=== PATIENT | male | born 1960 | race Two or more races ===

== ENCOUNTER 2021-05-27 08:50 | Emergency (ER) | payer MEDICAID ==
[~2021-05-27] VITALS: Ht 167.6 cm; Wt 77.1 kg
[2021-05-27] MEDS ORDERED: MECLIZINE HCL 25 MG TAB PO ONE (09:30)
[2021-05-27 09:41] LABS: Basophils # (auto) 0.1 10 ^3/uL (0-0.2); Basophils % (auto) 2.5 % (0.0-2.0); Eosinophils # (auto) 0.1 10 ^3/uL (0-0.8); Hematocrit 43.4 % (41.0-53.0); Hemoglobin 14.5 g/dL (13.5-17.5); Lymphocytes # (auto) 1.6 10 ^3/uL (0.4-5.4); Lymphocytes % (auto) 43.5 % (10.0-50.0); Mean Corpuscular Hemoglobin 30.9 pg (28.0-32.0); Mean Corpuscular Hgb Conc. 33.5 g/dL (32.0-36.0); Mean Corpuscular Volume 92.5 fL (80.0-100.0); Monocytes # (auto) 0.2 10 ^3/uL (0-1.3); Monocytes % (auto) 6.3 % (0.0-12.0); Neutrophils # (auto) 1.6 10 ^3/uL (1.6-8.6); Neutrophils % (auto) 45.7 % (37.0-80.0); Nucleated Red Blood Cells % 0.1 %; Red Blood Cells 4.69 10^6/uL (4.5-5.90); Red Cell Distribution Width 13.2 % (11.8-14.3); White Blood Cell 3.6 10^3/uL (4.4-10.8)
[2021-05-27 10:01] LABS: Albumin 3.9 g/dL (3.4-5.0); Calcium 8.6 mg/dL (8.5-10.1); Potassium 3.7 mmol/L (3.5-5.1)
[2021-05-27 10:07] LABS: BUN/Creatinine Ratio 19.2; Bilirubin, Total 1.2 mg/dL (0.2-1.0); Total Protein 7.6 g/dL (6.4-8.2)
[2021-05-27] MEDS ORDERED: MECL25CH38 PO (10:44)
[2021-05-27 11:30] LABS: Urine Bacteria NONE SEEN /hpf (None Seen); Urine Blood Negative /uL (Negative); Urine Specific Gravity 1.018 (1.001-1.035); Urine WBC <1 /hpf (0 - 3)
[2021-05-27 12:07] VITALS: BP 109/67
== END 2021-05-27 12:06 | disposition home or self-care (01) ==
LOC: ER 08:50
DX: R42 Dizziness and giddiness (principal); R11.2 Nausea with vomiting, unspecified; R51.9 Headache, unspecified; Z79.899 Other long term (current) drug therapy; Z20.822 Contact with and (suspected) exposure to COVID-19
CPT/HCPCS: 36415; 70450; 80053; 81001; 84484; 85025; 87426; 93005; 99285; J8597

== ENCOUNTER 2022-04-30 10:07 | Emergency (ER) | payer MEDICAID ==
[~2022-04-30] VITALS: Ht 167.6 cm; Wt 77.5 kg
[~2022-04-30 10:07] MED LIST: MECL25CH38 PO
[2022-04-30 10:15] VITALS: BP 138/85
[2022-04-30] MEDS ORDERED: METH750T22 PO ×2 (11:25→11:26)
[2022-04-30] MEDS ORDERED: MELO7.5T9 PO ×2 (11:25→11:26)
== END 2022-04-30 11:30 | disposition home or self-care (01) ==
LOC: ER 10:07
DX: S63.502A Unspecified sprain of left wrist, initial encounter (principal); S23.41XA Sprain of ribs, initial encounter; Z79.899 Other long term (current) drug therapy; X58.XXXA Exposure to other specified factors, initial encounter; Y93.89 Activity, other specified; Y92.89 Other specified places as the place of occurrence of the external cause; Y99.8 Other external cause status
CPT/HCPCS: 71046; 73110

== ENCOUNTER 2023-06-07 12:10 | Emergency (ER) | payer MEDICAID ==
[~2023-06-07] VITALS: Ht 167.6 cm; Wt 76.1 kg
[~2023-06-07 12:10] MED LIST changes: +MELO7.5T9 PO; +METH-1182 PO
[2023-06-07 12:23] VITALS: TEMP 98.8
[2023-06-07 12:27] VITALS: BP 133/88; RESP 18; O2SAT 95
[2023-06-07 12:30] VITALS: PULSE 82
[2023-06-07] MEDS: methylPREDNISolone SOD SUCC 125 MG/2 ML VL IM ONE (14:22)
[2023-06-07] MEDS: cefTRIAXone SOD 1,000 MG VL IM ONE (14:22)
[2023-06-07] MEDS ORDERED: CYCL-837 PO (15:05)
[2023-06-07] MEDS ORDERED: IBUP-1455 PO (15:05)
== END 2023-06-07 15:06 | disposition home or self-care (01) ==
LOC: ER 12:10
DX: S46.911A Strain of unspecified muscle, fascia and tendon at shoulder and upper arm level, right arm, initial encounter (principal); Z79.899 Other long term (current) drug therapy; X58.XXXA Exposure to other specified factors, initial encounter; Y93.89 Activity, other specified; Y92.89 Other specified places as the place of occurrence of the external cause; Y99.8 Other external cause status
CPT/HCPCS: 73030; 93005; 96372; 99284; J0696; J2930

== ENCOUNTER 2023-06-15 19:11 | Emergency (ER) | payer MEDICAID ==
[~2023-06-15] VITALS: Ht 167.6 cm; Wt 78.8 kg
[~2023-06-15 19:11] MED LIST changes: +CYCL-837 PO; +IBUP-1455 PO
[2023-06-15 21:34] VITALS: BP 124/85; PULSE 79; RESP 18; TEMP 98.9; O2SAT 97
[2023-06-15] MEDS ORDERED: NAP500T PO (22:02)
[2023-06-15] MEDS ORDERED: ACYC400T16 PO (22:02)
== END 2023-06-15 22:08 | disposition home or self-care (01) ==
LOC: ER 19:11
DX: B02.9 Zoster without complications (principal); E11.9 Type 2 diabetes mellitus without complications; E03.9 Hypothyroidism, unspecified; E78.5 Hyperlipidemia, unspecified; Z79.1 Long term (current) use of non-steroidal anti-inflammatories (NSAID); Z79.899 Other long term (current) drug therapy

== ENCOUNTER 2024-11-25 14:12 | Emergency (ER) | payer MEDICAID ==
[~2024-11-25] VITALS: Ht 167.6 cm; Wt 77.5 kg
[~2024-11-25 14:12] MED LIST changes: +ACYC400T16 PO; +NAP500T PO
[2024-11-25 15:13] LABS: Hematocrit 46.9 % (41.0-53.0); Hemoglobin 15.9 g/dL (13.5-17.5); Mean Corpuscular Hemoglobin 31.3 pg (28.0-32.0); Mean Corpuscular Volume 92.6 fL (80.0-100.0); Nucleated Red Blood Cells % 0.1 %
[2024-11-25 15:18] LABS: Anion Gap 8 (5-15); Carbon Dioxide 28 mmol/L (20-31); Chloride 104 mmol/L (98-107); Potassium 5.0 mmol/L (3.5-5.1); Sodium 140 mmol/L (136-145)
--- NOTE | 2024-11-25 15:18 | DVH ---
CHEST RADIOGRAPH Indication: abn ekg Technique: Single frontal view of the chest was obtained COMPARISON: CHEST TWO VIEWS ROUTINE on DOS: 04/30/22, CXR2 on DOS: 04/30/22 FINDINGS: Lines and Tubes: None Lungs: Clear Pleura: No effusion. No pneumothorax. Cardiomediastinal contours: Unremarkable Bones: Unremarkable IMPRESSION: 1. No acute disease.
[2024-11-25 15:19] LABS: Calcium 10.1 mg/dL (8.7-10.4)
[2024-11-25 15:23] LABS: Glucose 99 mg/dL (74-106)
[2024-11-25 15:24] LABS: BUN/Creatinine Ratio 12.1 (10.0-20.0); Blood Urea Nitrogen 11 mg/dL (9-23)
--- NOTE | 2024-11-25 15:51 | ED.PDOC ---
History of Present Illness HPI Comments 64 y/o M with history of arthritis, DM, HLD, and thyroid disease brought in by EMS from Dr. Preciado'kellie urgent care evaluation of an abnormal EKG findings. Patient states he was visiting Dr. Esqueda for a routine annual physical examination. EKG performed there reportedly showed minimal ST-elevation in a single lead, prompting the provider there to send the patient here for further evaluation. The patient denies any chest pain, shortness of breath, dizziness, syncope or any other symptoms. Chief Complaint: Abnormal LAB's Time Seen by MD: 15:20 Primary Care Provider: DR DUTTON Reviewed Notes: Nurses Notes, Medications, Allergies Allergies: Coded Allergies: NO KNOWN ALLERGIES (Unverified , 01/29/12) Home Meds Active Scripts Naproxen (NAPROSYN TABLET) 500 Mg Tb, 1 TAB PO BID PRN, #30 TAB 0 Refills Prov:SHIRA MCGUIRE 06/15/23 Acyclovir (ZOVIRAX TABLET) 400 Mg Tb, 2 TAB PO 5XD for 7 Days, #70 TAB 0 Refills Prov:SHIRA MCGUIRE 06/15/23 Ibuprofen Micronized (Ibuprofen) 800 Mg Tab, 800 MG PO TID, #40 TAB Prov:HERNANDEZ MUÑOZ QUALITY AUDITOR 06/07/23 Cyclobenzaprine Hcl (Cyclobenzaprine Hcl) 5 Mg Tab, 1 TAB PO TID, #30 TAB Prov:HERNANDEZ MUÑOZ QUALITY AUDITOR 06/07/23 Methocarbamol (Methocarbamol) 750 Mg Tab, 750 MG PO QHSP PRN, #20 TAB Prov:RONALD HORN 04/30/22 Meloxicam (Mobic) 7.5 Mg Tab, 7.5 MG PO BID, #30 TAB Prov:RONALD HORN 04/30/22 Meclizine HCl (Meclizine) 25 Mg Chw, 25 MG PO DAILY for 7 Days, #7 CHW Prov:WINNIE GAXIOLA MD 05/27/21 Information Source: Patient, Emergency Med Personnel Mode of Arrival: EMS Severity: Moderate Past Medical History PAST MEDICAL HISTORY: Arthritis, DM, High Lipids, Thyroid Surgical History: Hernia Repair Surgical History (Other): eye surgery Family History Family History: Unknown Social History Smoker: Non-Smoker Alcohol: Denies ETOH Use Drugs: Denies Drug Use Lives In: Home All Other Systems: Reviewed and Negative (Comprehensive systems review obtained and negative except for what is stated in the HPI.) Physical Exam General Appearance: No Apparent Distress HEENT: Other (Pupils and face symmetric. Moist mucous membranes.) Neck: Full Range of Motion, Normal Inspection Respiratory: Lungs Clear, No Accessory Muscle Use, No Respiratory Distress, Normal Breath Sounds Cardiovascular: No Edema, No JVD, Regular Rate/Rhythm Breast Exam: Deferred Gastrointestinal: Non Tender, Soft Genitalia: Deferred Pelvic: Deferred Rectal: Deferred Extremities: Normal inspection, Normal range of motion, Non-tender, No pedal edema Neurologic: Alert (Oriented x4), Normal Affect, Normal Mood, Other (Ambulatory) Cerebellar Function: NOT DONE Reflexes: NOT DONE Skin: Dry, Normal Color, Warm Lymphatic: NOT DONE Was a procedure done? Was a procedure done?: No EKG EKG : Comments Sinus rhythm, rate 54, normal intervals, left axis deviation, [address] ST-elevation in lead 3, nonspecific T changes Differential Dx Considerations may include: Benign abnormal EKG finding, AK, electrolyte imbalance, arrhythmia, among others X-Ray, Labs, Meds, VS Vital Signs Date Time Temp Pulse Resp B/P (MAP) Pulse Ox O2 Delivery O2 Flow Rate FiO2 11/25/24 18:46 98.2 71 16 107/74 (85) 95 98.2 11/25/24 14:17 98.5 61 18 154/90 98 98.5 11/25/24 14:13 54 Lab Test 11/25/24 15:45 11/25/24 14:50 Range/Units Troponin I High Sensitivity < 3 L < 3 L </=54 ng/L White Blood Count 4.9 4.4-10.8 10^3/uL Red Blood Count 5.07 4.5-5.90 10^6/uL Hemoglobin 15.9 13.5-17.5 g/dL Hematocrit 46.9 41.0-53.0 % Mean Corpuscular Volume 92.6 80.0-100.0 fL Mean Corpuscular Hemoglobin 31.3 28.0-32.0 pg Mean Corpuscular Hemoglobin Concent 33.8 32.0-36.0 g/dL Red Cell Distribution Width 13.2 11.8-14.3 % Platelet Count 163 140-450 10^3/uL Mean Platelet Volume 9.0 6.9-10.8 fL Neutrophils (%) (Auto) 47.0 37.0-80.0 % Lymphocytes (%) (Auto) 42.0 10.0-50.0 % Monocytes (%) (Auto) 8.0 0.0-12.0 % Eosinophils (%) (Auto) 2.5 0.0-7.0 % Basophils (%) (Auto) 0.5 0.0-2.0 % Neutrophils # (Auto) 2.3 1.6-8.6 10 ^3/uL Lymphocytes # (Auto) 2.1 0.4-5.4 10 ^3/uL Monocytes # (Auto) 0.4 0-1.3 10 ^3/uL Eosinophils # (Auto) 0.1 0-0.8 10 ^3/uL Basophils # (Auto) 0 0-0.2 10 ^3/uL Nucleated Red Blood Cells 0.1 % Sodium Level 140 136-145 mmol/L Potassium Level 5.0 3.5-5.1 mmol/L Chloride Level 104 98-107 mmol/L Carbon Dioxide Level 28 20-31 mmol/L Anion Gap 8 5-15 Blood Urea Nitrogen 11 9-23 mg/dL Creatinine 0.91 0.700-1.30 mg/dL Glomerular Filtration Rate Calc 95 >90 mL/min BUN/Creatinine Ratio 12.1 10.0-20.0 Serum Glucose 99 74-106 mg/dL Calcium Level 10.1 8.7-10.4 mg/dL B-Type Natriuretic Peptide 13.03 0-100 pg/mL [place] [id number] Ph: [phone] DIAGNOSTIC IMAGING Diagnostic Imaging Report : [id number] Signed PATIENT: SULTANA KUHN ACCT: [id number] UNIT: [id number] : 1960 LOC: ER ROOM / BED: / AGE / SEX: 64 / M ADM STATUS: REG ER SERVICE [id number] ORDERING PHYSICIAN: SEVERO MARCELINO MD PROCEDURE(s): CXRP - CHEST PORTABLE REASON: abn ekg ORDER NUMBER(s): [id number], ACCESSION NUMBER(s): [id number] CHEST RADIOGRAPH Indication: abn ekg Technique: Single frontal view of the chest was obtained COMPARISON: CHEST TWO VIEWS ROUTINE on DOS: 04/30/22, CXR2 on DOS: 04/30/22 FINDINGS: Lines and Tubes: None Lungs: Clear Pleura: No effusion. No pneumothorax. Cardiomediastinal contours: Unremarkable Bones: Unremarkable IMPRESSION: 1. No acute disease. ATED BY: CASSIE CANALES MD DICTATED DATE/TIME: 11/25/241515 SIGNED BY: CASSIE CANALES MD SIGNED DATE/TIME: 11/25/241515 CC: X-Ray, Labs, Meds, VS Comment 64 y/o M with history of arthritis, DM, HLD, and thyroid disease brought in by EMS from Dr. Preciado's urgent care evaluation of an abnormal EKG findings. Vitals remarkable for heart rate 54, BP 150/90 Exam unremarkable Rhythm strip independently interpreted by me: Sinus rhythm, rate 54, no ectopy. Chest x-ray unremarkable CBC, basic metabolic panel, BNP and 2 serial troponins unremarkable for any abnormality of acute significance No acute treatment was indicated in the ED, as patient remained asymptomatic. Patient appears stable for discharge with close outpatient follow-up with his primary physician. Time of 1ST Reevaluation: 15:50 Reevaluation 1ST: Unchanged Patient Education/Counseling: Diagnosis, Treatment, Need For Follow Up Family Education/Counseling: No Family Present SEPSIS Sepsis Screen Date sepsis recognized/suspect: Nov 25, 2024 Time Sepsis recognized/suspect: 1413 Recent Procedure: No On Antibiotic Therapy: No Respiratory Rate >20: No Heart Rate >90: No Temp<36 C (96.8 F) or >38.3 C: No SBP <90 or MAP <65 mmHG: No New Acute Mental Status Change: No Is the patient on CPAP, BIPAP,: No Physician Orders Electrocardigram (11/25/24 14:16) Chest Portable (11/25/24 14:36) Urinalysis (11/25/24 14:36) Vital Signs Date Time Temp Pulse Resp B/P (MAP) Pulse Ox O2 Delivery O2 Flow Rate FiO2 11/25/24 18:46 98.2 71 16 107/74 (85) 95 98.2 11/25/24 14:17 98.5 61 18 154/90 98 98.5 11/25/24 14:13 54 Laboratory Tests Test 11/25/24 14:50 White Blood Count 4.9 10^3/uL (4.4-10.8) Departure 1 Departure Time of Disposition: 19:00 Impression: Primary Impression: Abnormal electrocardiogram [ECG] [EKG] Disposition: HOME / SELF CARE / HOMELESS Condition: Stable Additional Instructions: Your blood tests, including screening test for heart attack and heart failure, were unremarkable. Your EKG does have an abnormal finding. Your chest x-ray was normal. Follow-up with your primary doctor in 1-2 days for referral to a c ardiologist for further evaluation. No treatment is needed at this time. Discharged With: Self Critical Care Note Critical Care Time?: No Stability Stability form required: No Heart Score Heart Score: Heart Score Response (Comments) Value History N/A 0 EKG N/A 0 Age N/A 0 Risk Factors N/A 0 Troponin N/A 0 Total 0 I personally scribed for SEVERO MARCELINO MD ([email or web address]) on 11/25/24 at 15:51. Electronically submitted by Yonathan Arenas ([email or web address]). I personally scribed for SEVERO MARCELINO MD ([email or web address]) on 11/25/24 at 15:55. Electronically submitted by Yonathan Arenas ([email or web address]). I personally scribed for SEVERO MARCELINO MD ([email or web address]) on 11/25/24 at 17:45. Electronically submitted by Yonathan Arenas ([email or web address]). SEVERO MARCELINO MD Nov 25, 2024 15:51
[2024-11-25 18:46] VITALS: BP 107/74; PULSE 71; RESP 16; TEMP 98.2; O2SAT 95
--- NOTE | 2024-11-27 09:15 | ECG ---
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
== END 2024-11-25 19:46 | disposition home or self-care (01) ==
LOC: ER 14:12 → EDBD 14:12 → ER 19:46
DX: R94.31 Abnormal electrocardiogram [ECG] [EKG] (principal); M19.90 Unspecified osteoarthritis, unspecified site; E78.5 Hyperlipidemia, unspecified; E11.9 Type 2 diabetes mellitus without complications; Z98.890 Other specified postprocedural states; Z79.899 Other long term (current) drug therapy
CPT/HCPCS: 36415; 71045; 80048; 83880; 84484; 85025; 93005